=== PATIENT | female | born 1995 | race African-American/Black ===

== ENCOUNTER 2020-09-24 19:05 | Emergency (ER) | payer SELFPAY ==
[~2020-09-24 19:05] MED LIST: BACTRIM DS TAB1 EACH PO; IBUPROFEN800 MG PO; METRONIDAZOLE500 MG PO; PYRIDIUM200 MG PO
[2020-09-24 19:58] LABS: BASOPHIL 0 % (0-2); EOSINOPHIL 1.6 % (0-5); HCT 42.4 % (37.0-47.0); HGB 13.7 g/dl (12.5-16.0); LYMPHOCYTE 60.1 % (15-48); MCH 28.2 pg (25.0-31.0); MCHC 32.3 g/dL (32.0-36.0); MCV 87.2 fL (78.0-100.0); MONOCYTE 4.3 % (0-12); MPV 10.2 fL (6.0-9.5); NEUTROPHIL 33.8 % (41-80); NRBC 0; PLT 275 K/uL (150-400); RBC 4.86 M/uL (4.20-5.40); RDW 13.7 % (11.5-14.0)
[2020-09-24 19:59] LABS: WBC 5.2 K/uL (4.0-10.5)
[2020-09-24 20:14] LABS: CREATININE 0.88 mg/dL (0.51-0.95); POTASSIUM 3.7 mmol/L (3.5-5.1)
[2020-09-24] MEDS ORDERED: PEPCID AC20 MG PO (22:23)
[2020-09-24] MEDS ORDERED: TRIAMCINOLONE454 GM TOP (22:23)
[2020-09-24] MEDS ORDERED: PREDNISONE20 MG PO (22:23)
== END 2020-09-24 22:18 | disposition home or self-care (01) ==
LOC: FER 19:05
PROVIDERS: Nurse Practitioner Family
DX: L50.0 Allergic urticaria (principal); F17.210 Nicotine dependence, cigarettes, uncomplicated
CPT/HCPCS: 36415; 80048; 85025; 99283; J1200; J2930; J7030

== ENCOUNTER 2020-09-26 02:43 | Emergency (ER) | payer OTHER ==
[~2020-09-26 02:43] MED LIST changes: +PEPCID AC20 MG PO; +PREDNISONE20 MG PO; +TRIAMCINOLONE454 GM TOP
[2020-09-26] MEDS ORDERED: ALLERGY RELIEF5 MG PO (04:09)
[2020-09-26] MEDS ORDERED: PEPCID AC20 MG PO (04:09)
[2020-09-26] MEDS ORDERED: PREDNISONE 20MG20 MG PO (04:09)
== END 2020-09-26 05:34 | disposition home or self-care (01) ==
LOC: FER 02:43
DX: L50.9 Urticaria, unspecified (principal); J02.9 Acute pharyngitis, unspecified; F17.210 Nicotine dependence, cigarettes, uncomplicated
CPT/HCPCS: 99282; J7512